=== PATIENT | male | born 1935 | race Caucasian/White ===

== ENCOUNTER 2021-11-28 14:41 | Inpatient (IN) ==
[2021-11-28 15:57] LABS: Basophils # 0.1 10*3/uL (0.0-0.2); Basophils % 0.5 % (0.0-0.8); Eosinophils # 0.1 10*3/uL (0.0-0.87); Eosinophils % 0.6 % (0.00-10.9); Hematocrit 41.2 VOL% (42.0-52.0); Hemoglobin 13.6 GM/DL (14.0-18.0); Immature Granulocytes % 0.4 %; Immature Granulocytes Absolute 0.05 #; Lymphocytes # 2.5 10*3/uL (1.4-4.0); Lymphocytes % 22.1 % (21.2-54.2); Mean Corpuscular Volume 95.8 FL (87-102); Mean Platelet Volume 11.9 FL (9.6-12.0); Monocytes # 1.3 10*3/uL (0.11-0.8); Monocytes % 11.2 % (1.7-12.7); Neutrophils % 65.2 % (38.7-73.9); Platelet Count 213 T/CUMM (130-400); Red Cell Distribution Width 14.1 % (9.3-17.3); White Blood Count 11.4 T/CUMM (4-12)
[2021-11-28 16:06] LABS: PT Patient Result 10.7 SECS (10.5-12.0); Partial Thromboplastin Time 25.1 SECS (23.7-32.9)
[2021-11-28 16:41] LABS: Albumin 3.3 G/DL (3.4-5.0); Bilirubin,Total 1.2 MG/DL (0.20-1.00); Calcium 10.7 MG/DL (8.5-10.1); Osmolality,Calculated 277.5 MOS/KG (273-304); Potassium 3.4 MMOL/L (3.5-5.1); Total Protein 7.2 G/DL (6.4-8.2)
[2021-11-28 17:18] LABS: Ammonia < 10 UMOL/L (11-32)
[2021-11-28 17:22] LABS: Lactic Acid 1.2 MMOL/L (0.4-2.0)
[2021-11-28] MEDS ORDERED: SODIUM CHLORIDE 0.9% 1,000 ML IV STA (17:56)
[2021-11-28 18:23] LABS: Bacteria,Urine Many /HPF (Few); Bilirubin,Urine Negative (Negative); Glucose,Urine (UA) Negative (Negative); Ketones,Urine Trace mg/dL (Negative); Mucus,Urine Moderate /LPF (Occasional); Nitrite,Urine Positive (Negative); Protein,Urine Negative (Negative); RBC,Urine 13 /HPF (0-4); Urine Appearance Slightly Cloudy (Clear); Urine Color Yellow (Yellow); Urine Specific Gravity 1.025 (1.001-1.035); Urine pH 5.5 (4.5-8.0)
[2021-11-28 18:24] LABS: Blood, Urine Trace mg/dL (Negative)
[2021-11-28] MEDS ORDERED: cefTRIAXone 1,000 MG in SODIUM CHLORIDE 0.9% 100 ML IV STA (18:43)
[2021-11-28] MEDS ORDERED: hydrALAZINE 20 MG/1 ML VIAL IV PRN (20:03)
[2021-11-28] MEDS ORDERED: ONDANSETRON 4 MG/2 ML VIAL IV PRN (20:03)
[2021-11-28] MEDS ORDERED: GLUCAGON 1 MG VIAL IM PRN (20:03)
[2021-11-28] MEDS ORDERED: DEXTROSE 10% 250 ML BAG IV PRN (20:31)
[2021-11-28] MEDS: LACTATED RINGERS 1,000 ML IV SCH (21:44)
[2021-11-29 04:56] LABS: Basophils # 0.1 10*3/uL (0.0-0.2); Basophils % 0.4 % (0.0-0.8); Eosinophils # 0.1 10*3/uL (0.0-0.87); Eosinophils % 0.9 % (0.00-10.9); Hematocrit 38.9 VOL% (42.0-52.0); Hemoglobin 12.4 GM/DL (14.0-18.0); Immature Granulocytes % 0.5 %; Immature Granulocytes Absolute 0.09 #; Lymphocytes # 3.4 10*3/uL (1.4-4.0); Lymphocytes % 20.3 % (21.2-54.2); Mean Corpuscular HGB Conc 31.9 GM/DL (32-36); Mean Corpuscular Volume 96.3 FL (87-102); Mean Platelet Volume 12.3 FL (9.6-12.0); Monocytes # 1.6 10*3/uL (0.11-0.8); Monocytes % 9.8 % (1.7-12.7); Neutrophils % 68.1 % (38.7-73.9); Platelet Count 184 T/CUMM (130-400); Red Blood Count 4.04 MC/CUMM (3.8-5.5); Red Cell Distribution Width 13.8 % (9.3-17.3); White Blood Count 16.5 T/CUMM (4-12)
[2021-11-29 05:12] LABS: Calcium 9.9 MG/DL (8.5-10.1); Osmolality,Calculated 277.3 MOS/KG (273-304); Potassium 3.4 MMOL/L (3.5-5.1)
[2021-11-29] MEDS ORDERED: ENOXAPARIN 40 MG/0.4 ML SYRINGE ONE (07:35)
[2021-11-29] MEDS: LACTATED RINGERS 1,000 ML IV SCH ×2 (08:19→18:39)
[2021-11-29] MEDS: ENOXAPARIN 40 MG/0.4 ML SYRINGE SUBCUT SCH (08:20)
[2021-11-29] MEDS: PANTOPRAZOLE 40 MG TABLET PO SCH (08:21)
[2021-11-29] MEDS: cefTRIAXone 1,000 MG in SODIUM CHLORIDE 0.9% 100 ML IV SCH (08:34)
[2021-11-29] MEDS: GABAPENTIN 100 MG CAPSULE PO SCH ×2 (14:32→21:04)
[2021-11-29] MEDS: PRIMIDONE 50 MG TABLET PO SCH (21:04)
[2021-11-29] MEDS: MIRTAZAPINE 15 MG TABLET PO SCH (21:05)
[2021-11-29] MEDS: MEMANTINE 5 MG TABLET PO SCH (21:05)
[2021-11-29] MEDS: CITALOPRAM 20 MG TABLET PO SCH (21:05)
[2021-11-30] MEDS: LACTATED RINGERS 1,000 ML IV SCH ×2 (04:57→13:31)
[2021-11-30 04:58] LABS: Basophils # 0.1 10*3/uL (0.0-0.2); Basophils % 0.4 % (0.0-0.8); Eosinophils # 0.3 10*3/uL (0.0-0.87); Eosinophils % 2.7 % (0.00-10.9); Hematocrit 35.7 VOL% (42.0-52.0); Hemoglobin 11.9 GM/DL (14.0-18.0); Immature Granulocytes % 0.5 %; Immature Granulocytes Absolute 0.07 #; Lymphocytes # 3.4 10*3/uL (1.4-4.0); Lymphocytes % 26.8 % (21.2-54.2); Mean Corpuscular HGB Conc 33.3 GM/DL (32-36); Mean Corpuscular Volume 94.7 FL (87-102); Monocytes # 1.4 10*3/uL (0.11-0.8); Monocytes % 11.3 % (1.7-12.7); Neutrophils % 58.3 % (38.7-73.9); Platelet Count 188 T/CUMM (130-400); Red Blood Count 3.77 MC/CUMM (3.8-5.5); Red Cell Distribution Width 13.8 % (9.3-17.3); White Blood Count 12.8 T/CUMM (4-12)
[2021-11-30 05:16] LABS: Calcium 9.6 MG/DL (8.5-10.1); Osmolality,Calculated 274.5 MOS/KG (273-304); Potassium 3.1 MMOL/L (3.5-5.1)
[2021-11-30] MEDS: cefTRIAXone 1,000 MG in SODIUM CHLORIDE 0.9% 100 ML IV SCH (08:52)
[2021-11-30] MEDS: GABAPENTIN 100 MG CAPSULE PO SCH ×3 (08:54→21:14)
[2021-11-30] MEDS: ENOXAPARIN 40 MG/0.4 ML SYRINGE SUBCUT SCH (08:54)
[2021-11-30] MEDS: PANTOPRAZOLE 40 MG TABLET PO SCH (08:54)
[2021-11-30] MEDS ORDERED: HYDROCORTISONE 5 MG PO SCH (09:00)
[2021-11-30] MEDS: MEMANTINE 5 MG TABLET PO SCH ×2 (09:56→21:14)
[2021-11-30] MEDS: POTASSIUM CHLORIDE 10 MEQ TABLET PO SCH (13:28)
[2021-11-30] MEDS: PRIMIDONE 50 MG TABLET PO SCH (21:13)
[2021-11-30] MEDS: MIRTAZAPINE 15 MG TABLET PO SCH (21:14)
[2021-11-30] MEDS: CITALOPRAM 20 MG TABLET PO SCH (21:14)
[2021-12-01] MEDS: LACTATED RINGERS 1,000 ML IV SCH (00:33)
[2021-12-01 05:09] LABS: Basophils # 0.1 10*3/uL (0.0-0.2); Basophils % 0.5 % (0.0-0.8); Eosinophils # 0.4 10*3/uL (0.0-0.87); Eosinophils % 3.8 % (0.00-10.9); Hematocrit 34.4 VOL% (42.0-52.0); Hemoglobin 11.4 GM/DL (14.0-18.0); Immature Granulocytes % 0.6 %; Immature Granulocytes Absolute 0.06 #; Lymphocytes # 3.7 10*3/uL (1.4-4.0); Lymphocytes % 36.2 % (21.2-54.2); Mean Corpuscular HGB Conc 33.1 GM/DL (32-36); Mean Corpuscular Volume 96.1 FL (87-102); Monocytes # 1.2 10*3/uL (0.11-0.8); Monocytes % 12.2 % (1.7-12.7); Neutrophils % 46.7 % (38.7-73.9); Platelet Count 179 T/CUMM (130-400); Red Blood Count 3.58 MC/CUMM (3.8-5.5); White Blood Count 10.1 T/CUMM (4-12)
[2021-12-01 05:47] LABS: Calcium 9.5 MG/DL (8.5-10.1); Osmolality,Calculated 285.8 MOS/KG (273-304); Potassium 3.6 MMOL/L (3.5-5.1)
[2021-12-01] MEDS: cefTRIAXone 1,000 MG in SODIUM CHLORIDE 0.9% 100 ML IV SCH (08:25)
[2021-12-01] MEDS: GABAPENTIN 100 MG CAPSULE PO SCH ×3 (08:27→20:52)
[2021-12-01] MEDS: POTASSIUM CHLORIDE 10 MEQ TABLET PO SCH (08:27)
[2021-12-01] MEDS: ENOXAPARIN 40 MG/0.4 ML SYRINGE SUBCUT SCH (08:27)
[2021-12-01] MEDS: MEMANTINE 5 MG TABLET PO SCH ×2 (08:27→20:52)
[2021-12-01] MEDS: PANTOPRAZOLE 40 MG TABLET PO SCH (08:27)
[2021-12-01] MEDS: PRIMIDONE 50 MG TABLET PO SCH (20:52)
[2021-12-01] MEDS: MIRTAZAPINE 15 MG TABLET PO SCH (20:52)
[2021-12-01] MEDS ORDERED: CITALOPRAM 20 MG TABLET PO SCH (21:00)
[2021-12-02 04:57] LABS: Basophils # 0.1 10*3/uL (0.0-0.2); Basophils % 0.5 % (0.0-0.8); Eosinophils # 0.5 10*3/uL (0.0-0.87); Eosinophils % 4.7 % (0.00-10.9); Hematocrit 35.9 VOL% (42.0-52.0); Hemoglobin 11.7 GM/DL (14.0-18.0); Immature Granulocytes % 0.6 %; Immature Granulocytes Absolute 0.06 #; Lymphocytes # 3.7 10*3/uL (1.4-4.0); Lymphocytes % 35.2 % (21.2-54.2); Mean Corpuscular HGB Conc 32.6 GM/DL (32-36); Mean Corpuscular Volume 95.7 FL (87-102); Mean Platelet Volume 12.1 FL (9.6-12.0); Monocytes # 1.2 10*3/uL (0.11-0.8); Monocytes % 11.4 % (1.7-12.7); Neutrophils % 47.6 % (38.7-73.9); Platelet Count 188 T/CUMM (130-400); Red Blood Count 3.75 MC/CUMM (3.8-5.5); Red Cell Distribution Width 14.3 % (9.3-17.3); White Blood Count 10.4 T/CUMM (4-12)
[2021-12-02 05:13] LABS: Calcium 9.7 MG/DL (8.5-10.1); Potassium 3.9 MMOL/L (3.5-5.1)
[2021-12-02] MEDS: LACTATED RINGERS 1,000 ML IV SCH (07:15)
[2021-12-02] MEDS: cefTRIAXone 1,000 MG in SODIUM CHLORIDE 0.9% 100 ML IV SCH (08:11)
[2021-12-02] MEDS: POTASSIUM CHLORIDE 10 MEQ TABLET PO SCH (08:13)
[2021-12-02] MEDS: GABAPENTIN 100 MG CAPSULE PO SCH ×2 (08:13→14:46)
[2021-12-02] MEDS: PANTOPRAZOLE 40 MG TABLET PO SCH (08:14)
[2021-12-02] MEDS: MEMANTINE 5 MG TABLET PO SCH (08:14)
[2021-12-02] MEDS: ENOXAPARIN 40 MG/0.4 ML SYRINGE SUBCUT SCH (08:15)
[2021-12-02 16:23] VITALS: BP 108/64
== END 2021-12-02 17:18 | disposition home health service (06) | DRG 689 ==
LOC: EDUNIT# → EDBD → N.ED 14:41 → SUATTDRO 20:03 → N.5E 20:03
PROVIDERS: ADMIT Emergency Medicine; ATTEND Emergency Medicine